=== PATIENT | male | born 1980 | race Caucasian/White ===

== ENCOUNTER 2017-10-09 | Emergency (ER) | payer OTHER ==
[~2017-10-09] VITALS: Ht 182.9 cm; Wt 113.3 kg
[~2017-10-09] MED LIST: BACTRIM,SEPT1 TABLET PO; CIPRO500 MG PO; FLAGYL500 MG PO; NO HOME MEDS PO
[2017-10-09 01:06] LABS: HEMATOCRIT 38.7 % (38.0-50.0); HEMOGLOBIN 13.5 G/DL (12.5-16.6); MCH 30.6 PG (29.0-34.0); MCHC 34.9 G/DL (30.0-36.0); MCV 87.8 FL (86-99); PLATELET COUNT 265 K/uL (156-360); RBC DIS.WIDTH-CV 12.8 % (11.8-14.6); RBC DIS.WIDTH-SD 41.2 % (39-53); RED BLOOD COUNT 4.41 M/uL (4.00-5.50); WHITE BLOOD COUNT 14.3 K/uL (4.1-10.2)
[2017-10-09 01:16] LABS: ALBUMIN 4.1 g/dL (3.2-4.8); CHLORIDE 109 mEq/L (99-109); POTASSIUM 3.6 mEq/L (3.7-5.4); SODIUM 143 mEq/L (136-147)
[2017-10-09 01:19] LABS: GLUCOSE 103 mg/dL (70-99); TOTAL PROTEIN 7.4 g/dL (6.4-8.3)
[2017-10-09 01:21] LABS: TOTAL BILIRUBIN 0.4 mg/dL (0.0-1.0)
[2017-10-09 01:22] LABS: CREATININE 1.1 mg/dL (0.6-1.3); GFR ESTIMATE (CALCULATED) > 59 mL/min/ (58.99-99999); SERUM ETHYL ALCOHOL < 10 mg/dL
[2017-10-09 01:23] LABS: ALKALINE PHOSPHATASE 84 IU/L (3-129)
[2017-10-09 01:24] LABS: AST (GOT) 30 IU/L (2-34); UREA NITROGEN (BUN) 22 mg/dL (9-23)
[2017-10-09 01:26] LABS: ACETAMINOPHEN (TYLENOL) < 10 mcg/mL (10-30); ALT (GPT) 42 IU/L (3-49); SALICYLATE < 5.0 MG/DL (15-30)
[2017-10-09 01:28] LABS: TROP-I INTERPRETATION NEGATIVE; TROPONIN-I 0.04 ng/mL (0.0-0.30)
[2017-10-09 01:28] LABS: APPEARANCE SL.HAZY ((CLEAR)); BILIRUBIN NEGATIVE; BLOOD SMALL; COLOR YELLOW ((YELLOW)); GLUCOSE (STRIP) NEGATIVE; KETONES NEGATIVE; LEUKOCYTES NEGATIVE; NITRITE NEGATIVE; PROTEIN (STRIP) 100; SPECIFIC GRAVITY 1.023 (1.000-1.030)
[2017-10-09 01:34] LABS: BACTERIA NONE SEEN /HPF; EPITHELIAL CELLS RARE /HPF; HYALINE CASTS 20-30 /LPF; MUCUS 1+ /LPF; RED BLOOD CELLS 0-5 /HPF (0-5); WHITE BLOOD CELLS 0-5 /HPF (0-5)
[2017-10-09 01:38] LABS: AMPHETAMINE NEGATIVE (500 ng/mL); BARBITURATES NEGATIVE (200 ng/mL); BENZODIAZEPINES NEGATIVE (150 ng/mL); BUPRENORPHINE NEGATIVE (10 ng/mL); COCAINE NEGATIVE (150 ng/mL); METHADONE NEGATIVE (200 ng/mL); METHAMPHETAMINE NEGATIVE (500 ng/mL); OPIATES (MORPHINE) PRESUMPTIVE POSITIVE (100 ng/mL); OXYCODONE NEGATIVE (100 ng/mL); PHENCYCLIDINE NEGATIVE (25 ng/mL); PROPOXYPHENE NEGATIVE (300 ng/mL); THC CANNABINOIDS NEGATIVE (50 ng/mL); TRICYCLIC ANTIDEPRESSANTS NEGATIVE (300 ng/mL)
[2017-10-09 02:07] VITALS: BP 137/105
== END 2017-10-09 02:10 | disposition left against medical advice (07) ==
LOC: EME → EDBD → EME
PROVIDERS: Emergency Medicine
DX: T40.1X1A Poisoning by heroin, accidental (unintentional), initial encounter (principal); R00.0 Tachycardia, unspecified; I10 Essential (primary) hypertension; F17.200 Nicotine dependence, unspecified, uncomplicated
CPT/HCPCS: 71045; 80053; 80175 90; 81003; 82140; 84484; 84999; 85027; 93005; 99281; 99285; G0480; J2060; J7030